=== PATIENT | female | born 1950 | race Caucasian/White ===

== ENCOUNTER 2017-10-08 15:16 | Inpatient (IN) | payer OTHER ==
[~2017-10-08] VITALS: Ht 172.7 cm; Wt 120.4 kg
[~2017-10-08 15:16] MED LIST changes: -Bactrim 400-801 EACH PO; -FAMC500 PO; -FURO20 PO
[2017-10-08] MEDS ORDERED: FURO20 PO (15:29)
[2017-10-08] MEDS ORDERED: Bactrim 400-801 EACH PO (15:29)
[2017-10-08 15:53] LABS: Hematocrit 36.4 % (33.0-51.0); Hemoglobin 10.7 g/dL (11.5-16.0); Mean Corpuscular HGB 30.3 pg (26.0-34.0); Mean Corpuscular HGB Conc 29.4 g/dL (31.5-36.5); Mean Corpuscular Volume 103 fL (80-100); Mean Platelet Volume 10.3 fL (9.1-12.4); NRBC ABSOLUTE 0.37 K/mm3 (0.00-0.02); NRBC Auto 6.7 /100 WBC (0.0-0.2); RDW Coefficient Variation 17.9 % (11.7-14.2); RDW Standard Deviation 67.1 fL (35.1-46.3); Red Blood Cell Count 3.53 M/mm3 (3.80-5.20)
[2017-10-08 16:00] LABS: Platelet Count 12 K/mm3 (150-400)
[2017-10-08 16:12] LABS: Albumin, Blood 2.5 g/dL (3.4-5.0); Albumin/Globulin Ratio 0.7 (0.8-1.8); Bilirubin, Total 1.2 mg/dL (0.1-1.0); Bun/Creatinine Ratio 20.3 (12.0-20.0); Calcium, Blood 8.2 mg/dL (8.5-10.1); Creatinine, Blood 1.38 mg/dL (0.40-1.00); Globulin, Blood 3.6 g/dL (2.2-4.0); Total Protein, Blood 6.1 g/dL (6.4-8.2); Troponin I 0.205 ng/mL (0.000-0.040)
[2017-10-08] MEDS ORDERED: FAMC500 PO (16:19)
[2017-10-08 16:47] LABS: BAND PERCENT MAN 19 % (0-8); BASOPHILS PERCENT MAN 0 % (0-2); EOSINOPHILS PERCENT MAN 0 % (0-6); LYMPHOCYTES % ATYPICAL MANUAL 1 % (0-0); LYMPHOCYTES ABSOLUTE MAN 1.37 K/mm3 (0.84-5.20); LYMPHOCYTES PERCENT MAN 24 % (21-46); MONOCYTES ABSOLUTE MAN 0.22 K/mm3 (0.16-1.47); MONOCYTES PERCENT MAN 4 % (4-13); SEG NEUTROPHILS PERCENT MAN 52 % (41-73); TOTAL CELLS COUNTED 100
[2017-10-08 17:30] LABS: Influenza A Negative (NEGATIVE); Influenza B Negative (NEGATIVE)
[2017-10-08 22:59] LABS: Hematocrit 32.1 % (33.0-51.0); Hemoglobin 9.3 g/dL (11.5-16.0); Mean Corpuscular HGB 29.9 pg (26.0-34.0); Mean Corpuscular Volume 103 fL (80-100); Mean Platelet Volume 11.4 fL (9.1-12.4); NRBC ABSOLUTE 0.31 K/mm3 (0.00-0.02); NRBC Auto 3.1 /100 WBC (0.0-0.2); Red Blood Cell Count 3.11 M/mm3 (3.80-5.20)
[2017-10-08 23:04] LABS: Platelet Count 25 K/mm3 (150-400)
[2017-10-08 23:17] LABS: Albumin, Blood 2.4 g/dL (3.4-5.0); Anion Gap 11 mmol/L (6-16); Blood Urea Nitrogen 31 mg/dL (8-24); Bun/Creatinine Ratio 18.6 (12.0-20.0); CO2, Blood 19 mmol/L (21-32); Calcium, Blood 8.1 mg/dL (8.5-10.1); Chloride, Blood 108 mmol/L (98-108); Creatinine, Blood 1.67 mg/dL (0.40-1.00); Glomerular Filtration Rate 33 (60-); Glucose, Blood 198 mg/dL (70-99); Phosphorus, Blood 4.8 mg/dL (2.5-4.9); Potassium, Blood 6.2 mmol/L (3.5-5.5); Sodium, Blood 138 mmol/L (136-145)
[2017-10-08 23:22] LABS: BAND PERCENT MAN 11 % (0-8); BASOPHILS PERCENT MAN 1 % (0-2); EOSINOPHILS PERCENT MAN 0 % (0-6); LYMPHOCYTES PERCENT MAN 29 % (21-46); MONOCYTES PERCENT MAN 5 % (4-13); SEG NEUTROPHILS PERCENT MAN 54 % (41-73); TOTAL CELLS COUNTED 100
== END 2017-10-09 00:53 | disposition short-term general hospital (02) | DRG 175 ==
LOC: ER 15:16 → ICUW 17:55 → ICUE 17:55
PROVIDERS: Internal Medicine Critical Care Medicine; Physician Assistant
DX: I26.92 Saddle embolus of pulmonary artery without acute cor pulmonale (principal); J96.01 Acute respiratory failure with hypoxia; J90 Pleural effusion, not elsewhere classified; C85.94 Non-Hodgkin lymphoma, unspecified, lymph nodes of axilla and upper limb; D69.6 Thrombocytopenia, unspecified; R16.1 Splenomegaly, not elsewhere classified; I82.412 Acute embolism and thrombosis of left femoral vein; I82.432 Acute embolism and thrombosis of left popliteal vein; J98.11 Atelectasis; E11.9 Type 2 diabetes mellitus without complications; F32.9 Major depressive disorder, single episode, unspecified; I10 Essential (primary) hypertension; Z87.891 Personal history of nicotine dependence; Z79.4 Long term (current) use of insulin
CPT/HCPCS: 36415; 36430; 51703; 71260; 80053; 80069; 83880; 84484; 85025; 86900; 86901; 87804; 93005; 93010; 93970; 94640; 99284; 99285; J0610; J1650; J7030; P9035; Q9967

== ENCOUNTER → 2017-10-08 | Outpatient (CLI) | payer OTHER ==
[~2017-10-08] MED LIST: ACET325 PO; ASCO500 PO; ASPI81CH PO; Bactrim 400-801 EACH PO; CEPH500 PO; CITA20 PO; DOCU100 PO; FAMC500 PO; FURO20 PO; GABA100 PO; HYDACE10B PO; INSDET100 SC; INSUASPI SC; Juven1 EACH PO; LISI20 PO; METF500 PO; Novolog100 UNIT/2 SC; PANT40 PO; PREVNAR 13 SYR0.5 ML IM; PROACE100 PO; Proventil2.5 MG/3 M IH; Simvastatin20 MG PO; ZESTORETIC 20-121 EA GT
[2017-10-08 14:27] LABS: Albumin, Blood 2.5 g/dL (3.4-5.0); Albumin/Globulin Ratio 0.8 (0.8-1.8); Calcium, Blood 8.4 mg/dL (8.5-10.1); Creatinine, Blood 1.47 mg/dL (0.40-1.00); Globulin, Blood 3.3 g/dL (2.2-4.0); Potassium, Blood 5.3 mmol/L (3.5-5.5); Total Protein, Blood 5.8 g/dL (6.4-8.2)
== END | disposition home or self-care (01) ==
LOC: LAB 13:08
PROVIDERS: Internal Medicine Hematology & Oncology
DX: C83.18 Mantle cell lymphoma, lymph nodes of multiple sites (principal)
CPT/HCPCS: 80053; 83615